=== PATIENT | female | born 1985 | race Two or more races ===

== ENCOUNTER 2017-10-29 16:46 | Emergency (ER) | payer MEDICAID ==
[~2017-10-29] VITALS: Ht 162.6 cm; Wt 104.3 kg
[~2017-10-29 16:46] MED LIST: BIRTH CONTROL
[2017-10-29 16:55] VITALS: BP 125/77
== END 2017-10-29 18:47 | disposition home or self-care (01) ==
LOC: ER 16:50
DX: S93.402A Sprain of unspecified ligament of left ankle, initial encounter (principal); F17.210 Nicotine dependence, cigarettes, uncomplicated; Z88.1 Allergy status to other antibiotic agents; Z88.6 Allergy status to analgesic agent; W11.XXXA Fall on and from ladder, initial encounter; Y93.89 Activity, other specified; Y92.89 Other specified places as the place of occurrence of the external cause; Y99.8 Other external cause status
CPT/HCPCS: 73610; 81025

== ENCOUNTER 2021-05-09 20:38 | Emergency (ER) | payer MEDICAID ==
[~2021-05-09] VITALS: Ht 160 cm; Wt 108.9 kg
[2021-05-09 22:38] VITALS: BP 155/83
== END 2021-05-09 22:39 | disposition home or self-care (01) ==
LOC: ER 20:38
DX: L53.9 Erythematous condition, unspecified (principal); T65.91XA Toxic effect of unspecified substance, accidental (unintentional), initial encounter; F17.210 Nicotine dependence, cigarettes, uncomplicated; Z88.1 Allergy status to other antibiotic agents; Z88.8 Allergy status to other drugs, medicaments and biological substances; Y92.89 Other specified places as the place of occurrence of the external cause